=== PATIENT | female | born 1965 | race Hispanic/Latino ===

== ENCOUNTER 2017-05-23 12:40 | Emergency (ER) | payer OTHER, SELFPAY ==
[2017-05-23] MEDS ORDERED: Ondansetron HCl/PF 4 MG/2 ML Vial ONE (13:00)
[2017-05-23] MEDS ORDERED: Ketorolac Tromethamine 30 MG/ML VIAL ONE (13:00)
[2017-05-23 13:10] LABS: #Basophils 0.1 thou/uL (0.0-0.2); #Eosinphils 0.1 thou/uL (0.0-0.7); #Lymphocytes 2.2 thou/uL (1.20-3.40); #Monocytes 0.9 thou/uL (0.11-0.59); #Neutrophils 6.8 thou/uL (1.40-6.50); %Basophils 0.7 % (0.0-1.0); %Eosinophils 0.5 % (0.0-10.0); %Lymphocytes 21.8 % (21.0-51.0); %Monocytes 9.2 % (0.0-10.0); %Neutrophils 67.7 % (42.0-75.0); Hemoglobin 11.8 g/dL (12.0-16.0); Mean Corpuscular HGB CONC 32.1 g/dL (32.0-36.0); Mean Corpuscular Hemoglobin 26.8 pg (27.0-31.0); Mean Corpuscular Volume 83.5 fl (81.0-99.0); Mean Platelet Volume 6.4 fL (7.4-10.4); Platelet Count 329 thou/uL (130-400); RBC Distribution Width 14.6 % (11.5-14.5); Red Blood Cell (RBC) Count 4.42 mill/uL (4.20-5.40)
[2017-05-23 13:20] LABS: ALT (SGPT) 64 U/L (8-55); AST (SGOT) 114 U/L (5-34); Albumin 3.9 g/dL (3.5-5.0); Alkaline Phosphatase 75 U/L (40-150); Anion Gap 13 mmol/L (10-20); BUN (Urea Nitrogen) 15 mg/dL (9.8-20.1); Bilirubin, Total 0.7 mg/dL (0.2-1.2); CKMB 1.3 ng/mL (0-6.6); Calc. Creatinine Clearance 0 mL/min (70-130); Carbon Dioxide 22 mmol/L (22-29); Chloride 106 mmol/L (98-107); Estimated GFR-MDRD 88; Globulin 3.2 g/dL (2.4-3.5); Glucose 128 mg/dL (70-105); Potassium 3.5 mmol/L (3.5-5.1); Protein, Total 7.1 g/dL (6.0-8.3); Sodium 137 mmol/L (136-145); Troponin I Less than 0.010 ng/mL (< 0.028)
[2017-05-23 13:46] LABS: Lipase 10857 U/L (8-78)
[2017-05-23 14:43] LABS: Bilirubin Negative (Negative); Blood, Urine Negative (Negative); Clarity Cloudy (Clear); Glucose, Urine (Dipstick) Negative (Negative); Leukocyte Negative (Negative); Nitrite Negative (Negative); Protein, Urine (Dipstick) Negative (Neg-Trace); Specific Gravity, Urine 1.015 (1.005-1.030); Urobilinogen 0.2 mg/dL (0.2-1.0)
[2017-05-23 14:45] LABS: Pregnancy Test - Urine (BHCG) Negative (Negative); Specific Gravity 1.015 (1.002-1.036)
[2017-05-23 14:46] LABS: Pregu Control Background? CLEAR/WHITE (CLR/WHITE); Pregu Control Bar Appear? YES (CONTROL BAR)
--- NOTE | 2017-05-23 15:17 | CT ---
CT ABDOMEN AND PELVIS WITH CONTRAST 05/23/[address] of the abdomen and pelvis was performed for evaluation of abdominal pain. Axial slices we re acquired after giving IV contrast. Oral contrast was withheld by request. The lung bases are clear. There are no effusions. The major finding in the upper abdomen is diffuse swelling of the pancreas with a large amount of pe ripancreatic fluid. The findings are consistent with acute pancreatitis. I do not see a pseudocyst or focal abscess at the moment, but the amount of fluid present is considerable. Attention is draw n to the pancreatic head. There is a single small calcification within it. As best as I can tell, it is just inferior to the common bile duct, as it goes through the head into the duodenum, but on t his scan alone, I cannot absolutely exclude the possibility of a tiny gallstone causing gallstone pa ncreatitis. The gallbladder itself does not appear to have wall thickening or obvious stones. It h as a small cap at its end. There is no dilation of intrahepatic ducts. The liver and spleen were unremarkable in appearance. The adrenal glands appear normal. 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 There is no significant renal obstruction. The ab dominal aorta is normal in caliber. CT of the pelvis is abnormal. The uterus is large and bulky, and within the endometrial cavity, the re appears to be an abundance of soft tissue. This is distended to a level of 7.7 cm. I would have to worry about the possibility of endometrial neoplasia. There is probably a small cyst associated with the left ovary that is about 2 cm in size. No solid adnexal masses were seen. There is no si gnificant amount of free fluid in the pelvis. No inflammatory changes are seen in the pelvis. The bowel is nondistended. There is no sign of obstruction or inflammatory changes in bowel. No fr ee air was seen. A very minimal fat-filled umbilical hernia was noted. IMPRESSION: 1. Findings consistent with acute pancreatitis with a large amount of peripancreatic fluid. 2. Tiny calcification that appears to be in the lower part of the pancreatic head or immediately adj acent to it. There is no dilation of the bile ducts to suggest obstruction, but seeing a calcificat ion near or in the pancreatic head always raises a question of gallstone pancreatitis. There are no findings of gallstones elsewhere. At this point, the finding is of indefinite significance, but s hould be at least kept in mind. 3. Bulky soft tissue in the endometrial cavity that is worrisome for endometrial neoplasia. Ultraso und recommended as a next step to evaluate this finding. 4. Probable 2 cm left ovarian cyst. 5. Horseshoe kidney. Findings discussed with Dr. Hinojosa at 1415 hours on 05/23/2017. POS: HOME
== END 2017-05-23 15:38 | disposition short-term general hospital (02) ==
LOC: BURERS 12:44
DX: K85.10 Biliary acute pancreatitis without necrosis or infection (principal)
CPT/HCPCS: 74177; 80053; 81003; 81025; 82553; 83690; 84484; 85025; 96361; 96374; 96375; J1885; J2405